=== PATIENT | male | born 1935 | race African-American/Black ===

== ENCOUNTER 2021-06-11 11:48 | Inpatient (IN) | payer OTHER, MEDICARE ==
[~2021-06-11] VITALS: Ht 177.8 cm; Wt 63.5 kg
[~2021-06-11 11:48] MED LIST: ATOR-2 PO; CEPH500T MT; CHOL400D7 PO; CLOP75TA15 PO; DONE10TA43 PO; ESCI-7 PO; MULT-230 PO; Proair HFA INH; QUET25TA36 PO; SENN-257 PO; TAMS-11 PO; refresh eye drops EACHEYE
[2021-06-11] MEDS ORDERED: CEFTRIAXONE 1 G PREMIX 50 ML IV ONE (13:15)
[2021-06-11 14:35] LABS: BASOPHILS % 0.3 % (0.0-2.0); EOSINOPHILS % 2.5 % (0.0-5.0); HEMOGLOBIN. 10.2 g/dL (14.0-18.0); LYMPHOCYTES % 23.5 % (20.0-50.0); MEAN CORPUSCULAR HEMOGLOBIN 28.7 pg (28.0-32.0); MEAN CORPUSCULAR VOLUME 86.9 fL (80.0-94.0); MONOCYTES % 7.8 % (2.0-8.0); NEUTROPHILS % 65.9 % (40.0-76.0); PLATELET 156 x1000/uL (130-400); RED BLOOD CELL COUNT 3.57 mill/uL (4.7-6.1)
[2021-06-11] MEDS ORDERED: LORAZEPAM 2MG/ML CPJ IM ONE (16:00)
[2021-06-11] MEDS ORDERED: HALOPERIDOL LACTATE 5MG/ML VIAL IM ONE (16:00)
[2021-06-11 17:30] LABS: CLARITY URINE CLEAR (CLEAR); COLOR URINE YELLOW (YELLOW); KETONES URINE NEGATIVE (NEGATIVE); LEUKOCYTE ESTERASE URINE 1+ (NEGATIVE); NITRITE URINE NEGATIVE (NEGATIVE); OCCULT BLOOD URINE NEGATIVE (NEGATIVE); PROTEIN URINE NEGATIVE (NEGATIVE); UROBILINOGEN URINE 0.2 E.U./dL (0.2-1.0)
[2021-06-11] MEDS ORDERED: SODIUM CHLORIDE 0.9% 1,000 ML IV ONE (17:45)
[2021-06-11 20:00] VITALS: BP 154/65
[2021-06-11 22:53] VITALS: BP 154/65
[2021-06-12] VITALS: BP 173/90
[2021-06-12] MEDS ORDERED: MAGNESIUM/ALUMINUM HYDROXIDE/SIMETHICONE 30ML UDC PO PRN (02:45)
[2021-06-12] MEDS ORDERED: DOCUSATE SODIUM 100MG CAPSULE PO PRN (02:45)
[2021-06-12] MEDS ORDERED: CEFTRIAXONE 1 G PREMIX 50 ML IV SCH (02:45)
[2021-06-12] MEDS ORDERED: ACETAMINOPHEN 325MG TABLET PO PRN (02:45)
[2021-06-12] MEDS ORDERED: CLONIDINE 0.1MG TABLET PO PRN (02:45)
[2021-06-12] MEDS ORDERED: ONDANSETRON HCL 4MG/2ML INJ IV PRN (02:45)
[2021-06-12] MEDS: SODIUM CHLORIDE 0.45% 1,000 ML IV SCH ×2 (03:15→13:40)
[2021-06-12 04:00] VITALS: BP 153/92
[2021-06-12 08:00] VITALS: BP 150/75
[2021-06-12] MEDS: ENOXAPARIN 30MG/0.3ML SYR SUBCUT SCH (09:03)
[2021-06-12 12:00] VITALS: BP 131/65
[2021-06-12] MEDS: CEFTRIAXONE 1,000 MG in DEXTROSE 5% WATER 50 ML IV SCH (13:40)
[2021-06-12] MEDS: CLOPIDOGREL 75MG TABLET PO SCH (15:04)
[2021-06-12] MEDS: CITALOPRAM HYDROBROMIDE 10MG TABLET PO SCH (15:04)
[2021-06-12 16:00] VITALS: BP 135/61
[2021-06-12 16:27] LABS: CHLORIDE 109 mEq/L (98-107)
[2021-06-12] MEDS: SENNOSIDES 8.6MG TABLET PO SCH (16:42)
[2021-06-12 20:00] VITALS: BP 154/85
[2021-06-12] MEDS ORDERED: LORAZEPAM 2MG/ML CPJ IV PRN (20:30)
[2021-06-12] MEDS ORDERED: ATORVASTATIN CALCIUM 40MG TABLET PO SCH (21:00)
[2021-06-12] MEDS ORDERED: TAMSULOSIN HCL 0.4MG SR CAPSULE PO SCH (21:00)
[2021-06-12] MEDS ORDERED: DONEPEZIL HCL 10MG TABLET PO SCH (21:00)
[2021-06-12] MEDS ORDERED: QUETIAPINE FUMARATE 25MG TABLET PO SCH (21:00)
[2021-06-13] VITALS: BP 116/49
[2021-06-13 04:00] VITALS: BP 136/65
[2021-06-13] MEDS: SODIUM CHLORIDE 0.45% 1,000 ML IV SCH (05:17)
[2021-06-13 08:00] VITALS: BP 135/72
[2021-06-13 08:19] LABS: BASOPHILS % 0.4 % (0.0-2.0); EOSINOPHILS % 3.2 % (0.0-5.0); HEMATOCRIT. 28.9 % (42.0-52.0); HEMOGLOBIN. 9.6 g/dL (14.0-18.0); LYMPHOCYTES % 30.1 % (20.0-50.0); MEAN CORPUSCULAR HEMOGLOBIN 28.6 pg (28.0-32.0); MEAN CORPUSCULAR VOLUME 85.7 fL (80.0-94.0); MEAN PLATELET VOLUME 8.5 fl (7.4-10.4); MONOCYTES % 9.7 % (2.0-8.0); NEUTROPHILS % 56.6 % (40.0-76.0); PLATELET 167 x1000/uL (130-400); RED BLOOD CELL COUNT 3.37 mill/uL (4.7-6.1); RED CELL DISTRIBUTION WIDTH 14.6 % (11.6-14.6)
[2021-06-13 08:27] LABS: CHLORIDE 110 mEq/L (98-107)
[2021-06-13] MEDS: CITALOPRAM HYDROBROMIDE 10MG TABLET PO SCH (09:56)
[2021-06-13] MEDS: SENNOSIDES 8.6MG TABLET PO SCH ×2 (09:56→16:21)
[2021-06-13] MEDS: CLOPIDOGREL 75MG TABLET PO SCH (09:56)
[2021-06-13] MEDS: ENOXAPARIN 30MG/0.3ML SYR SUBCUT SCH (09:56)
[2021-06-13 12:00] VITALS: BP 122/71
[2021-06-13] MEDS: CEFTRIAXONE 1,000 MG in DEXTROSE 5% WATER 50 ML IV SCH (13:43)
[2021-06-13 15:32] VITALS: BP 122/71
== END 2021-06-13 17:18 | disposition home health service (06) | DRG 682 ==
LOC: ER 11:48 → 6EST 17:36 → EDBEDREQ 17:52 → 6EST 22:42
PROVIDERS: ADMIT Hospitalist; ATTEND Hospitalist
DX: N17.9 Acute kidney failure, unspecified (principal); G93.41 Metabolic encephalopathy; N39.0 Urinary tract infection, site not specified; J06.9 Acute upper respiratory infection, unspecified; F03.90 Unspecified dementia, unspecified severity, without behavioral disturbance, psychotic disturbance, mood disturbance, and anxiety; J44.9 Chronic obstructive pulmonary disease, unspecified; Z20.822 Contact with and (suspected) exposure to COVID-19; N18.9 Chronic kidney disease, unspecified; I12.9 Hypertensive chronic kidney disease with stage 1 through stage 4 chronic kidney disease, or unspecified chronic kidney disease; E78.5 Hyperlipidemia, unspecified; Z86.73 Personal history of transient ischemic attack (TIA), and cerebral infarction without residual deficits
CPT/HCPCS: 36415; 71045; 80048; 80053; 80076; 81003; 83605; 84145; 84484; 85025; 87426; 93005; 93970; 97161; 99285; J0696; J1630; J1650; J2060; J7060